=== PATIENT | male | born 1970 | race Two or more races ===

== ENCOUNTER 2018-08-25 21:31 | Emergency (ER) | payer SELFPAY ==
--- NOTE | 2018-08-25 21:51 | ED PDOC ---
HPI: Psych/Substance Abuse Time Seen by Provider: 08/25/18 21:38 Chief Complaint (Nursing): Alcohol Ingestion Chief Complaint (Provider): Alcohol Ingestion History Per: Patient, EMS History/Exam Limitations: no limitations Onset/Duration Of Symptoms: Mins (found prior to arrival) Current Symptoms Are (Timing): Still Present Additional Complaint(s): 48 year old male presents to the ED via EMS for evaluation s/p being found lying on the ground. Patient admits to drinking alcohol tonight and is reporting right hip pain, but does note that he has hip pain almost every day, denying any falls or injury though. Additionally denies loss of consciousness, nausea, vomiting, chest pain, abdominal pain, and anticoagulant use. PMD: none provided Past Medical History Reviewed: Historical Data, Nursing Documentation, Vital Signs Vital Signs: Last Vital Signs Temp 97.5 F L 08/25/18 21:33 Pulse 85 08/25/18 21:33 Resp 18 08/25/18 21:33 BP 130/82 08/25/18 21:33 Pulse Ox 99 08/25/18 21:33 - Medical History PMH: No Chronic Diseases - Surgical History Surgical History: No Surg Hx - Family History Family History: States: Unknown Family Hx - Social History Alcohol: Other (yes, but did not clarify frequency) - Allergies Allergies/Adverse Reactions: Allergies Allergy/AdvReac Type Severity Reaction Status Date / Time No Known Allergies Allergy Verified 08/25/18 21:33 Review of Systems ROS Statement: Except As Marked, All Systems Reviewed And Found Negative Cardiovascular: Negative for: Chest Pain Gastrointestinal: Negative for: Nausea, Vomiting, Abdominal Pain Musculoskeletal: Positive for: Other (right hip pain) Neurological: Negative for: Other (loss of consciousness) Psych: Positive for: Other (alcohol intoxication) Physical Exam - Reviewed Nursing Documentation Reviewed: Yes Vital Signs Reviewed: Yes - Physical Exam Appears: Positive for: No Acute Distress Head Exam: Positive for: ATRAUMATIC, NORMAL INSPECTION, NORMOCEPHALIC Skin: Positive for: Normal Color, Warm, DRY Eye Exam: Positive for: Normal appearance ENT: Positive for: Normal ENT Inspection Neck: Positive for: Normal, Painless ROM Cardiovascular/Chest: Positive for: Regular Rate, Rhythm Respiratory: Positive for: Normal Breath Sounds. Negative for: Respiratory Distress Gastrointestinal/Abdominal: Positive for: Normal Exam, Soft. Negative for: Tenderness Back: Positive for: Normal Inspection Extremity: Positive for: Normal ROM (actively of bilateral LE). Negative for: Tenderness (of bilateral LE), Deformity (of bilateral LE) Neurologic/Psych: Positive for: Alert (and awake), Other (speech slurred with alcohol on breath) - Laboratory Results Result Diagrams: 08/25/18 23:32 - ECG O2 Sat by Pulse Oximetry: 99 (RA) Pulse Ox Interpretation: Normal - Radiology X-Ray: Interpreted by Me (R hip/pelvic x-ray) X-Ray Interpretation: No Acute Disease Medical Decision Making Medical Decision Making: Time: 2148 Initial Impression: alcohol intoxication, right hip pain Initial Plan: --CT C-spine --CT Head without contrast --Alcohol serum --CMP --Drug screen --CBC with differential --Right hip XR --Urinalysis Scribe Attestation: Documented by Carmita Han, acting as a scribe for Sami Giles PA-C. Provider Scribe Attestation: All medical record entries made by the Scribe were at my direction and personally dictated by me. I have reviewed the chart and agree that the record accurately reflects my personal performance of the history, physical exam, medical decision making, and the department course for this patient. I have also personally directed, reviewed, and agree with the discharge instructions and disposition. Disposition - Clinical Impression Clinical Impression: Head injury, Alcohol intoxication, Hip pain - Patient ED Disposition Is Patient to be Admitted: Transfer of Care (Signed out to Andres MCLAUGHLIN pending CT results and sobriety) - Disposition Disposition: Transfer of Care Disposition Time: 00:00 Condition: FAIR Forms: Triond ([employer])
[2018-08-25 23:47] LABS: ALB/GLOB RATIO 1.3 (1.0-2.1); ALBUMIN 4.3 g/dL (3.5-5.0); ALT/SGPT 41 U/L (21-72); AST/SGOT 44 U/L (17-59); BLOOD UREA NITROGEN 10 mg/dl (9-20); CALCIUM 8.7 mg/dL (8.4-10.2); GFR NON-AFRICAN AMERICAN > 60
[2018-08-26 06:56] LABS: BASO # 0.2 K/uL (0.0-0.2); BASO % 2.5 % (0.0-2.0); EOS # 0.2 K/uL (0.0-0.7); EOS % 2.9 % (0.0-4.0); LYMPH # 2.8 K/uL (1.0-4.3); LYMPH % 41.1 % (20.0-40.0); MEAN CELL VOLUME 98.8 fl (80.0-94.0); MEAN CORPUSCULAR HEMOGLOBIN 34.3 pg (27.0-31.0); MEAN CORPUSCULAR HGB CONC 34.7 g/dL (33.0-37.0); MEAN PLATELET VOLUME 7.2 fl (7.2-11.7); MONO # 0.2 K/uL (0.0-0.8); MONO % 3.4 % (0.0-10.0); NEUT # 3.4 K/uL (1.8-7.0); NEUT % 50.1 % (50.0-75.0); RBC 4.36 Mil/uL (4.40-5.90); RED CELL DISTRIBUTION WIDTH 12.9 % (11.5-14.5); WHITE BLOOD COUNT 6.8 K/uL (4.8-10.8)
[2018-08-26 06:58] VITALS: BP 123/76; PULSE 84; RESP 17; TEMP 98.2; O2SAT 100
--- NOTE | 2018-08-26 09:31 | CT ---
Date of service: 08/25/2018 PROCEDURE: CT HEAD WITHOUT CONTRAST. HISTORY: trauma COMPARISON: None available. TECHNIQUE: Axial computed tomography images were obtained through the head/brain without intravenous contrast. Radiation dose: Total exam DLP = 830.91 mGy-cm. This CT exam was performed using one or more of the following dose reduction techniques: Automated exposure control, adjustment of the mA and/or kV according to patient size, and/or use of iterative reconstruction technique. FINDINGS: HEMORRHAGE: No intracranial hemorrhage. BRAIN: Mild generalized volume loss. VENTRICLES: Unremarkable. No hydrocephalus. CALVARIUM: Unremarkable. PARANASAL SINUSES: Unremarkable as visualized. No significant inflammatory changes. MASTOID AIR CELLS: Unremarkable as visualized. No inflammatory changes. OTHER FINDINGS: None. IMPRESSION: No acute intracranial hemorrhage. Mild generalized volume loss.
--- NOTE | 2018-08-26 10:51 | CT ---
Date of service: 08/25/2018 PROCEDURE: CT Cervical Spine without contrast HISTORY: Trauma COMPARISON: No prior study available for comparison. TECHNIQUE: Axial computed tomography images were obtained of the cervical spine without the use of intravenous contrast. Coronal and sagittal reformatted images were created and reviewed. Radiation dose: Total exam DLP = 359.07 mGy-cm. This CT exam was performed using one or more of the following dose reduction techniques: Automated exposure control, adjustment of the mA and/or kV according to patient size, and/or use of iterative reconstruction technique. FINDINGS: The VERTEBRAE: No acute compression fractures nor retropulsed fragments. Vertebral bodies exhibit normal stature. There is apparent side bending of the head to the left possibly due to muscle spasm; dextroscoliosis would be less likely. The vertebral bodies otherwise exhibit normal alignment. Facets normally aligned. Disc space heights are relatively maintained. No disc herniations are identified. Small broad-based disc ridge complex DISCS/SPINAL CANAL/NEURAL FORAMINA: Lung apices clear disc space heights are maintained. There appears to be mild degenerative spondylosis at the C5-C6 level with minor anterior disc space narrowing and tiny anterior osteophyte formation. Small broad-based disc ridge complex felt be present. Facets are mildly hypertrophic on the left and minimally overgrown on the right side. Exit foramina adequate. At the C4-C5 level, there is also minimal broad-based bulge of the posterior annulus. Facet joints are slightly overgrown again left-side more so than right. Central canal and exit foramina do appear adequate. At the C3-C4 level, there is mild central and bilateral disc bulge that the ventral surface of the thecal sac though does not cause significant cord compression or canal stenosis. The facets are slightly overgrown left more so than right. Canal and exit foramina adequate. PARASPINAL SOFT TISSUES: Unremarkable. OTHER FINDINGS: None. IMPRESSION: No acute fractures. Very minor multilevel degenerative spondylosis. Parent side bending of the head to the left side possibly due to underlying muscle spasm
--- NOTE | 2018-08-26 10:52 | RAD ---
PROCEDURE: Right Hip Radiographs. HISTORY: trauma COMPARISON: None. FINDINGS: BONES: No acute fracture. JOINTS: Normal. SOFT TISSUES: Normal. OTHER FINDINGS: None. IMPRESSION: No demonstrated fracture or dislocation.
--- NOTE | 2018-08-26 20:23 | ED PDOC ---
- Laboratory Results Result Diagrams: 08/25/18 23:32 08/25/18 23:32 Lab Results: Total Bilirubin 0.2 mg/dl (0.2-1.3) 08/25/18 23:32 AST 44 U/L (17-59) 08/25/18 23:32 ALT 41 U/L (21-72) 08/25/18 23:32 Alkaline Phosphatase 73 U/L (38-126) 08/25/18 23:32 Total Protein 7.6 G/DL (6.3-8.2) 08/25/18 23:32 Albumin 4.3 g/dL (3.5-5.0) 08/25/18 23:32 Globulin 3.3 gm/dL (2.2-3.9) 08/25/18 23:32 Albumin/Globulin Ratio 1.3 (1.0-2.1) 08/25/18 23:32 - ECG O2 Sat by Pulse Oximetry: 100 - Progress ED Course And Treament: Case endorsed to investment underwriter from Tisha MCLAUGHLIN pending CT's, sobriety CT head and CT cspine show no acute findings as per USArad 1:30 Patient sleeping; no distress 3:00 Patient sleeping; no distress 4:00 Patient awake, alert, oriented x3. Ambulating steady gait. Stable for discharge Disposition - Clinical Impression Clinical Impression: Head injury, Alcohol intoxication, Hip pain - POA Present On Arrival: None - Disposition Disposition: Routine/Home Disposition Time: 04:00 Condition: IMPROVED
== END 2018-08-26 04:05 | disposition home or self-care (01) ==
LOC: H.ER 21:31
DX: F10.129 Alcohol abuse with intoxication, unspecified (principal); S09.90XA Unspecified injury of head, initial encounter; M25.551 Pain in right hip; Y90.8 Blood alcohol level of 240 mg/100 ml or more
CPT/HCPCS: 70450; 72125; 73501; 80053; 82948; 85025; G0480